=== PATIENT | male | born 1955 | race Caucasian/White ===

== ENCOUNTER 2016-12-25 09:15 | Day surgery (SDC) | payer BC ==
[2016-12-25] MEDS ORDERED: D5 LR 1000 ML 1,000 ML IV ONE (09:27)
[2016-12-25] MEDS ORDERED: DIPRIVAN VIAL 20 ML ONE (10:30)
[2016-12-25 11:50] VITALS: BP 120/76
== END 2016-12-25 11:20 | disposition home or self-care (01) ==
LOC: SURG1 09:15
PROVIDERS: ATTEND Internal Medicine Gastroenterology
PROC: 0D757ZZ Dilation of Esophagus, Via Natural or Artificial Opening (ICD-10-PCS; principal; 2016-12-25 12:00)
PROC: 0DB88ZX Excision of Small Intestine, Via Natural or Artificial Opening Endoscopic, Diagnostic (ICD-10-PCS; principal; 2016-12-25 12:00)
PROC: 0DJ08ZZ Inspection of Upper Intestinal Tract, Via Natural or Artificial Opening Endoscopic (ICD-10-PCS; principal; 2016-12-25 12:00)
PROC: 0DB68ZX Excision of Stomach, Via Natural or Artificial Opening Endoscopic, Diagnostic (ICD-10-PCS; principal; 2016-12-25 12:00)
DX: R13.19 Other dysphagia (principal); R10.13 Epigastric pain; K21.9 Gastro-esophageal reflux disease without esophagitis; K20.8 Other esophagitis; K22.2 Esophageal obstruction; K44.9 Diaphragmatic hernia without obstruction or gangrene; K29.60 Other gastritis without bleeding
CPT/HCPCS: A4217; J3490; J7120